=== PATIENT | male | born 1965 | race Caucasian/White ===

== ENCOUNTER → 2018-06-14 | Outpatient (CLI) | payer BC ==
--- NOTE | 2018-06-14 15:13 | RAD ---
Abdomen, 2 views, 06/14/2018: HISTORY: Left upper quadrant pain The abdominal gas pattern is unremarkable without evidence of obstruction. No free air is seen in the abdomen. There is no evidence of organomegaly or abnormal abdominal calcification. Mild scattered degenerative changes are present in the spine. IMPRESSION: No acute abdominal abnormality is detected. Electronically signed by: Rakan Daugherty MD (06/14/2018 3:09 PM) [facility]
== END | disposition home or self-care (01) ==
LOC: PMG 14:53
PROVIDERS: ATTEND Physician Assistant
DX: R10.84 Generalized abdominal pain (principal); M47.899 Other spondylosis, site unspecified
CPT/HCPCS: 74021

== ENCOUNTER → 2018-06-26 | Outpatient (CLI) | payer BC ==
[~2018-06-26] MED LIST: IOHEXOL 240 MG/ML 50ML VIAL. ONE; IOHEXOL 300 MG/ML 75 ML VIAL. IV ONE
--- NOTE | 2018-06-26 15:54 | RAD ---
CLINICAL HISTORY: LEFT SIDE ABDOMINAL PAIN COMPARISON: Radiographs 06/14/2018 TECHNIQUE: CT of the abdomen and pelvis following the administration of 75 mL of Omnipaque 300 intravenous contrast. Oral contrast was administered. Coronal and sagittal reformatted images were generated. PQRS compliance statement - One or more of the following individualized dose reduction techniques were utilized for this study: 1. Automated exposure control 2. Adjustment of the mA and/or kV according to patient size 3. Use of iterative reconstruction technique FINDINGS: Right lower lobe calcified granuloma are seen. ABDOMEN AND PELVIS: No focal liver lesion. Gallbladder is unremarkable. No intra or extrahepatic biliary ductal dilatation. Small splenule is seen otherwise the spleen is unremarkable. Pancreas is unremarkable.Adrenal glands are normal. Symmetric nephrograms. No focal renal lesion. No hydronephrosis. Colonic diverticula are seen. No evidence for acute diverticulitis. No small or large bowel dilatation. No abdominal or pelvic ascites. No abdominal or pelvic lymphadenopathy by size criteria. Fat-containing right inguinal hernia is seen. Small fat-containing ventral abdominal hernia is seen. Mild thickening of the bladder wall, possibly physiologic given the partially decompressed date. No definite pelvic mass is seen. Degenerative changes of the spine are seen. IMPRESSION: 1. Fat-containing right inguinal hernia is seen. 2. Small fat-containing ventral abdominal hernia is seen. 3. No evidence for bowel obstruction. 4. Mild bladder wall thickening, nonspecific, possibly from partially distended state although changes of cystitis or chronic outlet obstruction may result in similar appearance. Prostate does not appear enlarged. Electronically signed by: Wm Marsh MD (06/26/2018 3:50 PM) [facility]
== END | disposition home or self-care (01) ==
LOC: CT 09:27
PROVIDERS: ATTEND Physician Assistant
DX: K40.90 Unilateral inguinal hernia, without obstruction or gangrene, not specified as recurrent (principal); K45.8 Other specified abdominal hernia without obstruction or gangrene; K57.30 Diverticulosis of large intestine without perforation or abscess without bleeding
CPT/HCPCS: 74177; Q9966; Q9967

== ENCOUNTER → 2020-04-09 | Outpatient (CLI) | payer OTHER ==
--- NOTE | 2020-04-09 14:51 | RAD ---
EXAM: Chest, 2 views. HISTORY: Cough. COMPARISON: None. FINDINGS: 2 views of the chest are obtained. There is no infiltrate, pleural effusion or pneumothorax. The heart is normal in size. There is cervical spinal fusion instrumentation. IMPRESSION: No acute pulmonary finding. Electronically signed by: Shannon Palencia MD (04/09/2020 2:48 PM) [id number]
== END | disposition home or self-care (01) ==
LOC: PMG 14:36
PROVIDERS: ATTEND Physician Assistant
DX: R05 Cough (principal)
CPT/HCPCS: 71046

== ENCOUNTER → 2020-04-30 | Outpatient (CLI) | payer OTHER ==
--- NOTE | 2020-04-30 13:28 | RAD ---
EXAM: Abdomen sonogram. HISTORY: Right upper quadrant pain. TECHNIQUE: Sonographic imaging of the abdomen was performed. COMPARISON: None. FINDINGS: There is hepatomegaly. There is hepatic steatosis. No focal hepatic lesion is seen. The gallbladder is unremarkable. The common bile duct is upper normal in caliber for patient age. The right kidney, pancreas, and inferior cava are unremarkable. IMPRESSION: 1. Hepatomegaly and hepatic steatosis. 2. No acute abdominal finding. Electronically signed by: Shannon Palencia MD (04/30/2020 1:25 PM) [facility]
== END ==
LOC: US 10:34
PROVIDERS: ATTEND Physician Assistant
DX: K76.0 Fatty (change of) liver, not elsewhere classified (principal); R16.0 Hepatomegaly, not elsewhere classified
CPT/HCPCS: 76705